=== PATIENT | male | born 1980 | race Hispanic/Latino ===

== ENCOUNTER 2023-09-14 08:09 | Emergency (ER) | payer SELFPAY ==
[2023-09-14] MEDS ORDERED: Proparacaine 0.5% Opth 15 ML BOT ONE (09:07)
[2023-09-14] MEDS ORDERED: Fluorescein Opthalmic Strip ONE (09:07)
== END 2023-09-14 09:38 | disposition home or self-care (01) ==
LOC: ERS 08:09
DX: S05.01XA Injury of conjunctiva and corneal abrasion without foreign body, right eye, initial encounter (principal); Z55.6 Problems related to health literacy; W50.4XXA Accidental scratch by another person, initial encounter
CPT/HCPCS: 99283